=== PATIENT | female | born 1975 | race Caucasian/White ===

== ENCOUNTER 2017-04-29 00:29 | Emergency (ER) | payer BC ==
--- NOTE | 2017-04-29 00:59 | EDM.PDOC ---
ED HPI GENERAL MEDICAL PROBLEM - General Chief Complaint: Head Injury Stated Complaint: FELL Time Seen by Provider: 04/29/17 00:57 - History of Present Illness INITIAL COMMENTS - FREE TEXT/NARRATIVE: HISTORY AND PHYSICAL: History of present illness: Patient is 41-year-old white female presents status post fall in which she fell onto the ground striking her face she comes in with some ecchymosis a concern facial pain no loss of consciousness she denies neck pain or trauma vomiting neurological signs or symptoms or other concern Review of systems: As per history of present illness and below otherwise all systems reviewed and negative. Past medical history: As per history of present illness and as reviewed below otherwise noncontributory. Surgical history: As per history of present illness and as reviewed below otherwise noncontributory. Social history: No reported history of drug or alcohol abuse. Family history: As per history of present illness and as reviewed below otherwise noncontributory. Physical exam: HEENT: Patient has some small ecchymosis in the left periorbital region no crepitation point tenderness, normocephalic, pupils reactive, negative for conjunctival pallor or scleral icterus, mucous membranes moist, throat clear, neck supple, nontender, trachea midline. Lungs: Clear to auscultation, breath sounds equal bilaterally, chest nontender. Heart: S1S2, regular, negative for clicks, rubs, or JVD. Abdomen: Soft, nondistended, nontender. Negative for masses or hepatosplenomegaly. Negative for costovertebral tenderness. Pelvis: Stable nontender. Genitourinary: Deferred. Rectal: Deferred. Extremities: Atraumatic, negative for cords or calf pain. Neurovascular unremarkable. Neuro: Awake, alert, oriented. Cranial nerves II through XII unremarkable. Cerebellum unremarkable. Motor and sensory unremarkable throughout. Exam nonfocal. Diagnostics: CT brain and maxillofacial Therapeutics: None Impression: #1 observation status post fall #2 head/blunt facial trauma Definitive disposition and diagnosis as appropriate pending reevaluation and review of above. head Pain Score (Numeric/FACES): 10 - Related Data Allergies Allergy/AdvReac Type Severity Reaction Status Date / Time No Known Allergies Allergy Verified 04/29/17 00:44 Home Meds: Home Meds . [No Known Home Meds] 04/29/17 [History] Past Medical History HEENT History: Reports: None Cardiovascular History: Reports: None Respiratory History: Reports: None Gastrointestinal History: Reports: None Genitourinary History: Reports: None Musculoskeletal History: Reports: None Neurological History: Reports: None Psychiatric History: Reports: None Endocrine/Metabolic History: Reports: None Hematologic History: Reports: None Oncologic (Cancer) History: Reports: None Dermatologic History: Reports: None - Infectious Disease History Infectious Disease History: Reports: None - Past Surgical History Female Surgical History: Reports: Hysterectomy Social & Family History - Family History Family Medical History: Noncontributory - Tobacco Use Smoking Status *Q: Former Smoker Used Tobacco, but Quit: Yes Month Tobacco Last Used: 09/18 - Recreational Drug Use Recreational Drug Use: No ED ROS GENERAL - Review of Systems Review Of Systems: ROS reveals no pertinent complaints other than HPI. ED EXAM, HEAD INJURY - Physical Exam Exam: See Below (See dictation) Course - Vital Signs Last Recorded V/S: Last Vital Signs Temp 36.1 C 04/29/17 00:45 Pulse 71 04/29/17 00:45 Resp 18 04/29/17 00:45 BP 113/56 L 04/29/17 00:45 Pulse Ox 96 04/29/17 00:45 - Orders/Labs/Meds Orders: Active Orders 24 hr Category Date Time Status Head wo Cont [CT] Stat Exams 04/29/17 00:48 Ordered Max Facial Sinus wo Cont [CT] Stat Exams 04/29/17 00:49 Ordered Departure - Departure Time of Disposition: 01:03 Disposition: Home, Self-Care 01 Condition: Good Clinical Impression: Head injury, Blunt trauma of face - Discharge Information Referrals: PCP,None [Primary Care Provider] - Forms: ED Department Discharge Additional Instructions: The following information is given to patients seen in the emergency department who are being discharged to home. This information is to outline your options for follow-up care. We provide all patients seen in our emergency department with a follow-up referral. The need for follow-up, as well as the timing and circumstances, are variable depending upon the specifics of your emergency department visit. If you don't have a primary care physician on staff, we will provide you with a referral. We always advise you to contact your personal physician following an emergency department visit to inform them of the circumstance of the visit and for follow-up with them and/or the need for any referrals to a consulting specialist. The emergency department will also refer you to a specialist when appropriate. This referral assures that you have the opportunity for followup care with a specialist. All of these measure are taken in an effort to provide you with optimal care, which includes your followup. Under all circumstances we always encourage you to contact your private physician who remains a resource for coordinating your care. When calling for followup care, please make the office aware that this follow-up is from your recent emergency room visit. If for any reason you are refused follow-up, please contact the [facility] emergency department at and asked to speak to the emergency department charge nurs Stop drinking follow primary medical doctor wanted today's return as needed as discussed Motrin or Tylenol as directed - My Orders Last 24 Hours: My Active Orders 04/29/17 00:48 Head wo Cont [CT] Stat 04/29/17 00:49 Max Facial Sinus wo Cont [CT] Stat - Assessment/Plan Last 24 Hours: My Active Orders 04/29/17 00:48 Head wo Cont [CT] Stat 04/29/17 00:49 Max Facial Sinus wo Cont [CT] Stat
[2017-04-29] MEDS ORDERED: Acetaminophen 500 MG Tab PO ONE (01:36)
[2017-04-29] MEDS ORDERED: Ketorolac 30 MG/ML SDV IM ONE (02:54)
[2017-04-29 03:15] VITALS: BP 122/65
--- NOTE | 2017-04-29 14:52 | CT ---
EXAM DATE: 04/29/17 PATIENT'S AGE: 41 Patient: JOAQUIM PUGA Facility: [place], [place] Site . Site : 1975 Study: CT Head WO CONT [id number]/28/2017 1:10:35 AM Ordering Physician: Doctor Maldonado Final Report: INDICATION: Fall, possible loss of consciousness TECHNIQUE: CT head without contrast. COMPARISON: None FINDINGS: CSF spaces: Within normal limits for age. Brain parenchyma: The villareal-white differentiation is normal. No sign of mass, hemorrhage, or midline shift. Skull base and calvarium: The visualized paranasal sinuses and mastoid air cells demonstrate no acute or significant findings. The visualized orbits are grossly unremarkable. No skull fractures. IMPRESSION: Unremarkable noncontrast head CT. Please note that all CT scans at this facility use dose modulation, iterative reconstruction, and/or weight-based dosing when appropriate to reduce radiation dose to as low as reasonably achievable. Dictated by Delfina Rivera MD @ Apr 29 2017 1:27AM (Electronic Signature) Report Signed by Proxy. [facility] HOSPITALCedrick
--- NOTE | 2017-04-29 14:53 | CT ---
EXAM DATE: 04/29/17 PATIENT'S AGE: 41 Patient: JOAQUIM PUGA Facility: [place], [place] Site . Site : 1975 Study: CT Facial WO CONT [id number]/28/2017 1:14:27 AM Ordering Physician: Doctor Maldonado Final Report: INDICATION: Fall onto face TECHNIQUE: CT maxillofacial without contrast. COMPARISON: None FINDINGS: Facial bones: No fractures or bone lesions. Specifically the nasal bones, temporomandibular joints, maxilla and mandible appear intact. Orbits and globes: Unremarkable. Sinuses: No acute or significant findings. Soft tissues: Unremarkable. IMPRESSION: No sign of acute injury. Please note that all CT scans at this facility use dose modulation, iterative reconstruction, and/or weight-based dosing when appropriate to reduce radiation dose to as low as reasonably achievable. Dictated by Delfina Rivera MD @ Apr 29 2017 1:27AM (Electronic Signature) Report Signed by Proxy. SHARLENE
== END 2017-04-29 03:10 | disposition home or self-care (01) ==
LOC: MW.ED 00:29
DX: S05.12XA Contusion of eyeball and orbital tissues, left eye, initial encounter (principal); S09.93XA Unspecified injury of face, initial encounter; Z90.710 Acquired absence of both cervix and uterus; Z87.891 Personal history of nicotine dependence; W01.10XA Fall on same level from slipping, tripping and stumbling with subsequent striking against unspecified object, initial encounter
CPT/HCPCS: 70450; 70486; 96372; 99283; A9270; J1885